=== PATIENT | male | born 1985 | race Caucasian/White ===

== ENCOUNTER 2018-08-20 11:52 | Emergency (ER) | payer SELFPAY ==
[~2018-08-20] VITALS: Ht 175.3 cm; Wt 80.0 kg
[2018-08-20] MEDS ORDERED: OXYC-662 GT (11:59)
[2018-08-20 14:18] VITALS: BP 138/63
== END 2018-08-20 14:00 | disposition home or self-care (01) ==
LOC: ER 11:59
DX: T40.2X1A Poisoning by other opioids, accidental (unintentional), initial encounter (principal); F11.10 Opioid abuse, uncomplicated; Y92.89 Other specified places as the place of occurrence of the external cause; Z79.899 Other long term (current) drug therapy
CPT/HCPCS: 82962; 99283